=== PATIENT | male | born 1980 | race African-American/Black ===

== ENCOUNTER 2017-07-15 15:42 | Emergency (ER) | payer SELFPAY ==
[~2017-07-15] VITALS: Ht 180.3 cm; Wt 115.4 kg
[~2017-07-15 15:42] MED LIST: NOHOMEMEDS
[2017-07-15 16:07] LABS: ADD MIUA? YES; BILIRUBIN NEGATIVE; BLOOD SMALL; COLOR YELLOW ((YELLOW)); GLUCOSE (STRIP) NEGATIVE; KETONES NEGATIVE; LEUKOCYTES LARGE; NITRITE NEGATIVE; PROTEIN (STRIP) 30; SPECIFIC GRAVITY 1.027 (1.000-1.030); UROBILINOGEN 0.2 MG/DL (0.2-1.0)
[2017-07-15 16:10] LABS: HEMATOCRIT 44.4 % (38.0-50.0); MCH 29.3 PG (29.0-34.0); MCHC 34.7 G/DL (30.0-36.0); MCV 84.6 FL (86-99); MEAN PLAT.VOLUME 9.7 uM^3 (9.0-12.4); PLATELET COUNT 225 K/uL (156-360); RBC DIS.WIDTH-CV 13.6 % (11.8-14.6); RBC DIS.WIDTH-SD 42.4 % (39-53); RED BLOOD COUNT 5.25 M/uL (4.00-5.50)
[2017-07-15 16:16] LABS: BACTERIA RARE /HPF; EPITHELIAL CELLS RARE /HPF; MUCUS 2+ /LPF; RED BLOOD CELLS 15-20 /HPF (0-5); UCUL ADDED? YES; WHITE BLOOD CELLS TNTC /HPF (0-5)
[2017-07-15 16:20] LABS: CHLORIDE 107 mEq/L (99-109); POTASSIUM 3.8 mEq/L (3.7-5.4); SODIUM 138 mEq/L (136-147)
[2017-07-15 16:22] LABS: GLUCOSE 106 mg/dL (70-99)
[2017-07-15 16:23] LABS: ANION GAP 7 MEQ/L (2-14)
[2017-07-15 16:26] LABS: GFR ESTIMATE (CALCULATED) > 59 mL/min/ (58.99-99999)
[2017-07-15 16:27] LABS: UREA NITROGEN (BUN) 12 mg/dL (9-23)
[2017-07-15] MEDS ORDERED: CIPRO500 MG PO (17:05)
[2017-07-15] MEDS ORDERED: MOTRIN600 MG PO (17:05)
[2017-07-15] MEDS ORDERED: TRAMADOL HCL50 MG PO (17:05)
[2017-07-15 18:14] VITALS: BP 159/100
[2017-07-17 14:14] LABS: CHLAMYDIA TRACHOMATIS NEGATIVE; NEISSERIA GONORRHOEAE NEGATIVE
== END 2017-07-15 18:15 | disposition home or self-care (01) ==
LOC: EME 15:42
PROVIDERS: Physician Assistant
DX: N39.0 Urinary tract infection, site not specified (principal); Z20.2 Contact with and (suspected) exposure to infections with a predominantly sexual mode of transmission; J45.909 Unspecified asthma, uncomplicated; Z87.442 Personal history of urinary calculi; F17.200 Nicotine dependence, unspecified, uncomplicated
CPT/HCPCS: 80048; 81003; 85027; 87086; 87491; 87591; 99281; 99284; J0696; J1885